=== PATIENT | female | born 1965 | race Caucasian/White ===

== ENCOUNTER 2016-11-18 08:44 | Outpatient (CLI) ==
--- NOTE | 2016-11-18 22:26 | MRI ---
EXAM: Lumbar spine MRI without contrast. HISTORY: Chronic back pain. COMPARISON: None. TECHNIQUE: Multiplanar, multisequence MR images were acquired lumbar spine without contrast. FINDINGS: Transitional spinal anatomy is present. For the purposes of this dictation, the last rib -bearing vertebra is numbered [id number]. At L1, there are bilateral articulating transverse processes. T here are five non-rib bearing lumbar vertebra. The lumbar vertebra are normal in height and intrins ic bone marrow signal. Alignment is near anatomic. A benign intraosseous hemangioma is present at L1. Ventral osteophytes are present in the lumbar spine and there is endplate irregularity from T11 -12 to L2-3. Small chronic Schmorl's nodes are present at L1, L2 and L3. There is mild disc space narrowing at L1-2 and L5-S1. Conus medullaris ends at L2-3 and has normal signal intensity. The visualized liver, spleen and kidneys are unremarkable. There are no paravertebral masses. L1-2: There is a minor disc bulge and a small central disc protrusion that is slightly asymmetric t o the left. There is no central canal stenosis. L2-3: There is a minor disc bulge that is asymmetric to the right which minimally narrows the infer ior right neural foramen. L3-4: There is a minor disc bulge that minimally narrows the inferior neural foramina bilaterally a nd minor right and mild left facet arthropathy. There is minor left neural foraminal stenosis. L4-5: There is a minor disc bulge and mild bilateral facet and ligamentum flavum hypertrophy. This causes triangulation of the thecal sac and mild left foraminal stenosis. L5-S1: There is a small posterior disc bulge without central canal stenosis and minor bilateral fac et arthropathy. IMPRESSION: 1. Mild lower thoracic and lumbar degenerative endplate changes with small chronic Schmorl's nodes in the lumbar spine from L1-L3. 2. Small central disc protrusion L1-2. 3. 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
== END 2016-11-18 08:45 | disposition home or self-care (01) ==
LOC: RAD 08:44
PROVIDERS: ATTEND Family Medicine
DX: M54.5 Low back pain (principal); G89.29 Other chronic pain; M54.10 Radiculopathy, site unspecified

== ENCOUNTER 2018-02-27 12:16 | Outpatient (CLI) ==
--- NOTE | 2018-02-27 13:47 | DI ---
EXAM: RIGHT HIP, 2 VIEWS HISTORY: Hip pain FINDINGS: No fracture or joint dislocation. Articular cartilage width is within normal limits for age. Bone density and soft tissues are within normal limits. IMPRESSION: Within normal limits.
== END 2018-02-27 12:17 | disposition home or self-care (01) ==
LOC: RAD 12:16
PROVIDERS: ATTEND Family Medicine
DX: M25.551 Pain in right hip (principal)

== ENCOUNTER 2019-01-18 11:51 | Outpatient (CLI) ==
--- NOTE | 2019-01-18 16:31 | DI ---
EXAM: Lumbar spine three view HISTORY: Pain COMPARISON: None TECHNIQUE: Three views lumbar spine were performed FINDINGS: Sacroiliac joints intact. Sacral arcuate intact. Vertebral bodies normal height. No fra cture. No subluxation. Small multilevel marginal osteophyte formation. Multilevel Schmorl's node f ormation. Intervertebral disc spaces maintained. Atherosclerotic vascular calcification. IMPRESSION: Mild chronic discogenic degenerative disease
== END 2019-01-18 11:52 | disposition home or self-care (01) ==
LOC: RAD 11:51
PROVIDERS: ATTEND Physician Assistant
DX: M54.5 Low back pain (principal)